=== PATIENT | female | born 1960 | race Caucasian/White ===

== ENCOUNTER 2017-11-14 12:58 | Emergency (ER) | payer OTHER ==
[~2017-11-14] VITALS: Ht 162.6 cm; Wt 64.0 kg
[2017-11-14 13:04] VITALS: Ht 162.6 cm; Wt 64.0 kg
[2017-11-14 15:38] VITALS: BP 107/62
== END 2017-11-14 15:38 | disposition home or self-care (01) ==
LOC: ED 12:58
DX: S42.291A Other displaced fracture of upper end of right humerus, initial encounter for closed fracture (principal); E11.9 Type 2 diabetes mellitus without complications; W01.0XXA Fall on same level from slipping, tripping and stumbling without subsequent striking against object, initial encounter; Y93.89 Activity, other specified; Y92.89 Other specified places as the place of occurrence of the external cause; Y99.8 Other external cause status